=== PATIENT | female | born 1940 | race Hispanic/Latino ===

== ENCOUNTER 2019-02-14 10:34 | Observation (INO) | payer MEDICARE ==
[2019-02-11 15:33] LABS: BASOPHILS % 0.4 % (0.0-1.0); EOSINOPHILS # (AUTO) 0.2 (0.0-0.4); HEMATOCRIT 44.3 % (34.2-44.1); HEMOGLOBIN 15.1 g/dL (12.0-16.0); LYMPHOCYTES # (AUTO) 1.7 (1.0-3.2); LYMPHOCYTES % 23.4 % (18.0-39.1); MEAN CORPUSCULAR HEMOGLOBIN 32.1 pg (28-32); MEAN CORPUSCULAR HGB CONC 34.1 g/dL (31-35); MEAN CORPUSCULAR VOLUME 94.1 fL (81-99); MONOCYTES # (AUTO) 0.6 (0.2-0.8); MONOCYTES % 8.3 % (4.4-11.3); NEUTROPHILS # (AUTO) 4.8 (2.1-6.9); NEUTROPHILS % 64.6 % (38.7-80.0); PLATELET COUNT 290 x10e3/uL (140-360); RED BLOOD COUNT 4.71 x10e6/uL (3.6-5.1)
--- NOTE | 2019-02-11 16:03 | Diagnostic Imaging Report ---
EXAMINATION: CHEST 2 VIEWS INDICATION: Pre-operative COMPARISON: None FINDINGS: LINES/TUBES:None LUNGS:The lungs are well-inflated. No focal consolidation or pulmonary edema. PLEURA:No pleural effusion or pneumothorax. MEDIASTINUM:The cardiomediastinal silhouette appears normal in size and shape. Atherosclerotic calcifications of the thoracic aorta. BONES/SOFT TISSUES:No acute osseous injury. ABDOMEN:No free air under the diaphragm. Status post cholecystectomy. IMPRESSION: No focal pneumonia or pulmonary edema. Signed by: Amy Rankin MD on 02/11/2019 4:00 PM
[~2019-02-14] VITALS: Ht 157.5 cm; Wt 65.3 kg
[~2019-02-14 10:34] MED LIST: ASPIRIN81 MG PO; LISINOPRIL10 MG PO
--- OUTSIDE RECORDS SUMMARY | 2019-02-14 10:37 | XMS REPORT ---
Author Author [facility] Address Unknown Phone Unavailable Care Team Providers Care Central Office Maintainer Name Role Phone LULA KENNEDY Unavailable Unavailable Problems This patient has no known problems. Allergies, Adverse Reactions, Alerts This patient has no known allergies or adverse reactions. Medications This patient has no known medications. Results Test Description Test Time Test Comments Text Results Atomic Results Result Comments CHEST 2 VIEWS 2019-02-11 15:58:00 [place] [address] Patient Name: YVAN RICHARD MR #: [id number] : 1940 Age/Sex: 78/F Req #: [id number] [facility] Physician: Ordered by: LULA KENNEYD MD Report #: [id number] Location: OR Room/Bed: Procedure: [id number] DX/CHEST 2 VIEWS Exam Date: Exam Time: REPORT STATUS: Signed EXAMINATION: CHEST 2 VIEWS INDICATION: Pre-operative COMPARISON: None FINDINGS: LINES/TUBES:None LUNGS:The lungs are well- inflated. No focal consolidation or pulmonary edema. PLEURA:No pleural effusion or pneumothorax. MEDIASTINUM:The cardiomediastinal silhouette appears normal in size and shape. Atherosclerotic calcifications of the thoracic aorta. BONES/SOFT TISSUES:No acute osseous injury. ABDOMEN:No free air under the diaphragm. Status post cholecystectomy. IMPRESSION: No focal pneumonia or pulmonary edema. Signed by: Dipika Rankin MD on 02/11/2019 4:00 PM Dictated By: DIPIKA RANKIN MD 99 Transcribed By: QUINTIN on 02/11/191599 COPY TO: LULA KENNEDY MD
[2019-02-14] MEDS ORDERED: CLINDAMYCIN 600MG / 50ML 50 ML IV ONE (11:07)
[2019-02-14] MEDS ORDERED: CEFTRIAXONE SOD 1 GM/NS 50 ML 50 ML IV ONE (11:07)
[2019-02-14] MEDS ORDERED: GENTAMICIN 80MG/NS 100 ML 200 ML IV ONE (11:08)
[2019-02-14] MEDS ORDERED: BACITRACIN 50,000 UNIT VIAL ONE (12:13)
[2019-02-14] MEDS ORDERED: BUPIVACAINE 0.25%/EPI 30ML SDV INJ ONE (12:13)
[2019-02-14] MEDS ORDERED: IOPAMIDOL 300MG/ML 50ML INFUS..BTL IV ONE (12:13)
[2019-02-14] MEDS ORDERED: BACITRACIN ZINC 15 GM OINT ONE (14:59)
[2019-02-14] MEDS ORDERED: D5.45%NS/KCL 20MEQ 1,000 ML IV SCH (15:12)
[2019-02-14] MEDS ORDERED: NALOXONE HCL INJ 0.4 MG/ML AMP IV PRN (15:15)
[2019-02-14] MEDS ORDERED: MORPHINE SULFATE 1 MG/ML 30ML PCA IV PRN (15:15)
[2019-02-14] MEDS ORDERED: DIPHENHYDRAMINE HCL 25 MG CAP PO PRN (15:15)
[2019-02-14] MEDS ORDERED: ONDANSETRON HCL INJ 2MG/ML 2ML 2 MG/ML VIAL IV PRN (15:15)
[2019-02-14] MEDS ORDERED: FENTANYL CITRATE/PF 100MCG/2 ML INJ ONE (18:12)
[2019-02-14] MEDS ORDERED: DEXAMETHASONE SOD PHOS INJ 4 MG/ML VIAL ONE (18:25)
[2019-02-14] MEDS ORDERED: LIDOCAINE HCL 2% LOCAL INJ 5 ML SDV VIAL INJ ONE (18:25)
[2019-02-14] MEDS ORDERED: SEVOFLURANE INHAL SOLN 250 ML PEN BTL ONE (18:25)
[2019-02-14] MEDS ORDERED: EPHEDRINE SULFATE INJ 50 MG/10 ML SYR ONE (18:25)
[2019-02-14] MEDS ORDERED: PROPOFOL IV EMULSION 10 MG/ML 20 ML VIAL ONE (18:25)
[2019-02-14] MEDS ORDERED: ONDANSETRON HCL INJ 2MG/ML 2ML 2 MG/ML VIAL ONE (18:25)
[2019-02-14] MEDS ORDERED: GLYCOPYRROLATE INJ 1MG/ 5 ML SYR ONE (18:25)
[2019-02-14 20:29] VITALS: BP 93/46
[2019-02-14 20:30] VITALS: BP 93/46
--- NOTE | 2019-02-14 20:30 | NUR ---
RECEIVED PATIENT FROM PACU AT THIS TIME. PATIENT REPORTS PAIN IS WELL CONTROLLED AT 4/10. PATIENT IS A&OX3. TRANSFERRED TO BED FROM STRETCHER WITHOUT ASSISTANCE. ENCARNACION DRAINING TO GRAVITY. YARN MERCERIZER OPERATOR HELPER PUMP CHECKED WITH PACU NURSE. R FA 20G IV ASYMPTOMATIC, INTACT, AND PATENT. SOME OLD BLOOD NOTED TO HOSPITAL GOWN, NEW GOWN PROVIDED. VAGINAL PACKING IN PLACE. 2 TROCHAR SITES TO SUPRAPUBIC AREA. SMALL AMOUNT OF NEW BLOOD NOTED TO LOWER R BANDAID, WILL CONTINUE TO MONITOR, PACU NURSE REPORTS THAT HAPPENED DURING TRANSFER. LUNG SOUNDS CLEAR. BOWEL SOUNDS HYPOACTIVE. TOLD PATIENT TO REPORT WHEN SHE PASSES GAS, PATIENT VERBALIZED UNDERSTANDING. THIGH HIGH MARY HOSE AND SCDS PRESENT AND ACTIVE. BED LOCKED IN LOWEST POSITION, SIDE RAILS UPX2, CALL LIGHT IN REACH.
[2019-02-14] MEDS: DOCUSATE SODIUM 100 MG CAP PO SCH (22:24)
[2019-02-14] MEDS: CLINDAMYCIN 300MG 50 ML IV SCH (22:24)
[2019-02-14] MEDS: PIPERACILLIN/TAZO 2.25 GM 50 ML IV SCH (23:14)
[2019-02-15] VITALS (8 sets, daily range): BP systolic 91–120; BP diastolic 45–64
[2019-02-15 05:54] LABS: BASOPHILS % 0.2 % (0.0-1.0); EOSINOPHILS # (AUTO) 0.2 (0.0-0.4); EOSINOPHILS % 1.6 % (0.0-6.0); HEMATOCRIT 35.5 % (34.2-44.1); HEMOGLOBIN 11.8 g/dL (12.0-16.0); LYMPHOCYTES # (AUTO) 0.6 (1.0-3.2); LYMPHOCYTES % 4.8 % (18.0-39.1); MEAN CORPUSCULAR HEMOGLOBIN 31.9 pg (28-32); MEAN CORPUSCULAR HGB CONC 33.2 g/dL (31-35); MEAN CORPUSCULAR VOLUME 95.9 fL (81-99); MONOCYTES # (AUTO) 1.1 (0.2-0.8); MONOCYTES % 8.5 % (4.4-11.3); NEUTROPHILS # (AUTO) 10.5 (2.1-6.9); NEUTROPHILS % 84.7 % (38.7-80.0); PLATELET COUNT 246 x10e3/uL (140-360); RED CELL DISTRIBUTION WIDTH 13.3 % (11.7-14.4)
[2019-02-15] MEDS: CLINDAMYCIN 300MG 50 ML IV SCH (05:55)
[2019-02-15 06:07] LABS: ANION GAP 12.7 mmol/L (8-16); CALCIUM 8.6 mg/dL (8.4-10.2); CREATININE, SERUM 1.04 mg/dL (0.57-1.11); POTASSIUM 4.7 mmol/L (3.5-5.1)
[2019-02-15] MEDS: PIPERACILLIN/TAZO 2.25 GM 50 ML IV SCH (06:26)
--- NOTE | 2019-02-15 07:18 | NUR ---
pt awake alert resp even and unlabored at this time no distress noted, pt able to make needs known call light in reach. real estate recruiter pump in use at this time. no pain when asked.
[2019-02-15] MEDS ORDERED: ACETAMINOPHEN/CODEINE 300MG - 30MG TAB PO PRN (08:15)
--- NOTE | 2019-02-15 08:15 | NUR ---
LITHOGRAPHIC CAMERA OPERATOR pump dced at this time. pt pain level at 2.
[2019-02-15] MEDS: DOCUSATE SODIUM 100 MG CAP PO SCH ×2 (09:00→17:47)
--- NOTE | 2019-02-15 11:30 | NUR ---
Woke up pt for vagina packing removal, pt seemed as if her speech was slurred, but able to communicate. Pt raised both arms, was bale to stick out her tongue, and feet resistance were strong both hand loom fixer apprentice were strong, call to Dr. Smith at this time.
--- NOTE | 2019-02-15 11:40 | NUR ---
stat MRI ordered. 02 placed
--- NOTE | 2019-02-15 13:15 | NUR ---
pt off unit for MRI.
--- NOTE | 2019-02-15 13:19 | NUR ---
family member notified, Catrachita Cedillo daughter.
--- NOTE | 2019-02-15 14:15 | NUR ---
Visit made by the Spiritual Care Department Pastoral Visitor, Leslie Ashton. PV provided pastoral presence, prayer, hospitality, and supportive listening. Pastoral Visitor informed pt/family of the scope of Store Clerk Services and availability. ALLIE ANDRADE Highway Patrol Commander Spiritual Care Department O: [phone] Pager: [phone] ([phone] number calling from)
--- NOTE | 2019-02-15 14:53 | Diagnostic Imaging Report ---
EXAMINATION: MRI of the brain without contrast. HISTORY: Bilateral upper extremity weakness mostly on the right, possible TIA, COMPARISON: None available TECHNIQUE: Sagittal T2; axial DWI, T2, FLAIR, T1-IR, T2 gradient echo; coronal FLAIR. IMAGE QUALITY: Adequate. FINDINGS: Parenchyma: 1. A few scattered white matter T2 and FLAIR hyperintense foci, most likely age appropriate minimal chronic microvascular ischemic changes. Otherwise no areas of abnormal signal intensity in the brain parenchyma. 2. No mass, hemorrhage, acute or chronic infarcts. Skull: Unremarkable. Vessels: Expected flow voids present in the major arteries and dural sinuses. Extra-axial spaces: No abnormal signal intensity or mass effect. Brain volume: Within normal limits for age. Ventricles: No hydrocephalus or displacement. Foramen magnum: Unremarkable. Sella: Unremarkable. Paranasal / mastoid sinuses: No significant inflammatory disease. IMPRESSION: 1. No acute infarcts. 2. Minimal age-appropriate nonspecific chronic microvascular ischemic changes. Signed by: Dr. Marietta Ku M.D. on 02/15/2019 2:49 PM
--- NOTE | 2019-02-15 16:20 | NUR ---
pt returned to room, no c/o pain or no s/s of confusion.
--- NOTE | 2019-02-15 17:15 | NUR ---
spoke with Aldo Liu about pt symptoms.
--- NOTE | 2019-02-15 19:00 | NUR ---
RECEIVED PATIENT IN BEDSIDE SHIFT REPORT. PATIENT RESTING IN BED AT THIS TIME. PAIN IN ABDOMEN 08/18, WILL PROVIDE PAIN MEDICATION. 2 TROCHAR SITES TO LOWER ABD C/D/I, NO DRAINAGE NOTED, SURROUNDING SKIN NORMAL. NO S&S OF DISTRESS NOTED. BED LOCKED IN LOWEST POSITION, SIDE RAILS UPX2, CALL LIGHT IN REACH.
--- NOTE | 2019-02-15 20:10 | NUR ---
ASSISTED PATIENT TO RESTROOM AND BACK WITH WALKER. STEADY GAIT NOTED. TOLD PATIENT TO CALL IF SHE WANTS TO WALK THROUGHOUT THE EVENING, OTHERWISE TO MAKE SURE TO WALK TOMORROW BEFORE D/C. PATIENT VERBALIZED UNDERSTANDING.
--- NOTE | 2019-02-15 20:14 | NUR ---
report given to oncoming nurse, pt stable at this time
[2019-02-16] VITALS: BP 91/45
[2019-02-16 04:00] VITALS: BP 111/51
[2019-02-16 05:29] LABS: BASOPHILS # (AUTO) 0.1 (0.0-0.1); BASOPHILS % 0.5 % (0.0-1.0); EOSINOPHILS # (AUTO) 0.1 (0.0-0.4); EOSINOPHILS % 1.4 % (0.0-6.0); HEMATOCRIT 34.7 % (34.2-44.1); HEMOGLOBIN 11.5 g/dL (12.0-16.0); LYMPHOCYTES # (AUTO) 1.8 (1.0-3.2); LYMPHOCYTES % 18.2 % (18.0-39.1); MEAN CORPUSCULAR HEMOGLOBIN 31.6 pg (28-32); MEAN CORPUSCULAR HGB CONC 33.1 g/dL (31-35); MEAN CORPUSCULAR VOLUME 95.3 fL (81-99); MONOCYTES % 9.5 % (4.4-11.3); PLATELET COUNT 223 x10e3/uL (140-360); RED BLOOD COUNT 3.64 x10e6/uL (3.6-5.1); RED CELL DISTRIBUTION WIDTH 13.4 % (11.7-14.4)
[2019-02-16 05:48] LABS: CALCIUM 9.1 mg/dL (8.4-10.2); CREATININE, SERUM 1.18 mg/dL (0.57-1.11)
[2019-02-16 07:51] VITALS: BP 109/54
[2019-02-16] MEDS: DOCUSATE SODIUM 100 MG CAP PO SCH (08:30)
[2019-02-16 09:05] VITALS: BP 109/54
[2019-02-16] MEDS ORDERED: ONDANSETRON HCL 4 MG ORAL DISINTEGRATING TAB PO PRN (10:15)
--- NOTE | 2019-02-16 10:18 | NUR ---
MD BRAUN STATES NILS DOES NOT NEED TO SEE PT PRIOR TO DC. WILL VERIFY HH IS SET, AND INITIATE DC PAPERWORK
[2019-02-16] MEDS ORDERED: LEVAQUIN500 MG PO (10:33)
[2019-02-16] MEDS ORDERED: TYLENOL WITH C1 EACH PO (10:33)
--- NOTE | 2019-02-16 10:35 | NUR ---
SPOKE WITH KRISTINE LIRA. STATES PT IS SET FOR HH . PT CAN SAFELY BE DC
--- NOTE | 2019-02-16 11:22 | NUR ---
DISCHARGE INSTRUCTIONS AND PRESCRIPTIONS GIVEN PT VERBALIZED UNDERSTANDING TELE DC TEACHING COMPLETE ON HOW TO EMPTY ENCARNACION BAG PT IS READY FOR DC AT THIS TIME
--- NOTE | 2019-02-16 11:30 | NUR ---
PT OFF UNIT TO HOME AT THIS TIME
--- NOTE | 2019-02-16 14:19 | NUR ---
ORDERS FOR HOME HEALTH CARE CHOICE LETTER GIVEN PT [facility]OSE [facility] [phone] [phone] FAXED CLINICALS AND CONFIRMATION REC'D CONFIRMED PT'S ADDRESS AND PHONE NUMBER COPY OF CHOICE LETTER GIVEN TO PT
--- NOTE | 2019-02-16 18:19 | Discharge Summary ---
OBSTETRICS NURSE: Moody Nieto MD. FINAL DIAGNOSES: 1. Status post cystocele repair. 2. Episode of left upper extremity twitching postop and pain medication given. The patient is stable. Signs and symptoms completely resolved. An MRI of the brain without contrast negative. HOSPITAL COURSE: A 78-year-old female with status post cystocele repair. The patient does have a Maritn catheter in place. The patient was stable, about to go home and when she complained of some twitching of her left hand and some spasm. Workup otherwise negative. The patient is stable. An MRI of the brain is negative. Laboratory otherwise unremarkable. The patient may have reaction to anesthetic pain medication postop, but completely resolved now. She is ambulatory. Martin catheter remain in place. She will go home with a Martin catheter and home health. The patient is otherwise stable and discharged home today. The patient's blood pressure is low at this time, therefore I will hold off the lisinopril. She may continue with her baby aspirin. The patient to follow up with Dr. Moody Nieto as an outpatient. MD GRETTA Murphy/JULIAL /[id number]
--- NOTE | 2019-04-25 00:24 | Operative Report ---
DATE OF PROCEDURE: 02/14/2019 SURGEON: Moody Nieto MD PREOPERATIVE DIAGNOSES: 1. Very large cystocele. 2. Stress type urinary incontinence. 3. Existing and eroded mesh from prior reconstructive surgery by prior physicians. 4. Urinary tract infections. POSTOPERATIVE DIAGNOSES: 1. Very large cystocele. 2. Stress type urinary incontinence. 3. Existing and eroded mesh from prior reconstructive surgery by prior physicians. 4. Urinary tract infections. OPERATIONS PERFORMED: 1. Excision of eroded and exposed vaginal mesh (separate procedure performed for the diagnosis of the mesh). 2. Complicated repair of large cystocele (separate procedure performed for the diagnosis of cystocele). 3. Utilization of graft in cystocele repair. 4. Pubovaginal sling utilizing homograft. 5. Cystourethroscopy with bilateral ureteral catheterization and retrograde ureteropyelography (separate procedure performed for the urinary tract infections). 6. Interpretation of retrograde ureteropyelography. SKI LIFT OPERATOR: Hollis Nieto MD COMPLICATIONS: None. CLINICAL SUMMARY: Kassandra Umaña is a 78-year-old woman, who had a previous reconstruction with mesh. She has a large cystocele. She has incontinence. She is brought for the above procedure. She is aware of the risks of bleeding, infection, injury to adjacent structures, erosion, need for additional procedures, and she elected to proceed. OPERATIVE PROCEDURE IN DETAIL: Informed consent was verified. Kassandra Umaña was properly identified, taken to the operating room, placed on the operating table in supine position. Anesthesia was uneventfully begun. The patient was then carefully and gently repositioned in dorsal lithotomy position with all pressure points well padded. Her genitalia, abdomen, and perineum were shaved, prepared, and draped in usual sterile fashion. Labial stay sutures were utilized. We infiltrated the anterior vaginal wall mucosa with Marcaine with epinephrine. We then made a midline incision anteriorly. We created vaginal wall flap and identified the eroded mesh. We excised the eroded mesh, which of course left holes within the anterior vaginal wall flaps. We excised as much mesh as was an accessible. Copious irrigation was performed. The patient had a very large cystocele. We felt that we copiously irrigated and had clean wounds and we were having the patient on broad-spectrum intravenous antibiotics. Therefore, we felt it would be safe to place a biological mesh in repairing this severe pelvic organ prolapse. We pierced the endopelvic fascia bilaterally taking care to stay as laterally as possible to avoid injuring or affecting the periurethral neurovascular complexes. We then placed heavy Vicryl sutures in interrupted fashion and plicating the two cut edges of the endopelvic fascia. We did this from the bladder neck to the cephalad most extent of the vaginal dissection. This resulted in complete reduction of the patient's severe cystocele. Martin catheter was placed draining the bladder completely. We then took a piece of fascia jhonatan, hydrated in antibiotic irrigant, cut to shape, and placed a heavy PDS suture in a helical fashion through each end. We then utilized the LiquidHub needle system to hussein from our vaginal incision through the anterior abdominal wall, taking care to hug the posterior surface of the pubis. We then dragged along with the needles a suture pair of strands of the PDS on either side. Once this was done, the graft was secured to the anterior vaginal dissection utilizing 3-0 chromic suture. We then extended the graft to the distal most extent of the urethral dissection in order to create a pubovaginal sling. We then utilized the LiquidHub needle lateral suture passer to take one strand of each PDS sutures and tunnelled it subcutaneously suprapubically to join as contralateral counterpart. The sutures were then tied down to the level of the patient's skin and the knots were allowed to fall deep within the suprapubic fat pad thus ensuring a non-lifting, non-constricting pubovaginal sling. Copious irrigation was performed of all incisions. The vaginal wall mucosa was trimmed and we reconstructed the anterior vaginal wall including all the tissue defects created by excising the eroded mesh. We approximated the suprapubic stab wounds with interrupted Monocryl subcuticular suture. The Martin catheter was then withdrawn. Cystourethroscopy revealed a grade 1 to 2 trabeculations, but no tumors, no stones, no diverticula. No suspicious mucosal lesions were identified. An 8-Afghan catheter was used to cannulate each ureter and retrograde ureteropyelogram was performed. Interpretation of retrograde ureteropyelography: Contrast was instilled in retrograde fashion bilaterally. J-hooking was present bilaterally and mild hydroureteronephrosis, but there was unobstructed drainage observed bilaterally fluoroscopically. There were no filling defects. There were no stones. Martin catheter was replaced. The vaginal packing with antibiotic ointment was placed. Sterile dressings were applied to the suprapubic stab wounds. Labial stay sutures were removed and the patient was uneventfully reversed from anesthesia and taken to recovery room in stable condition. There were no complications to procedure. She tolerated the procedure well. We will admit the patient for postoperative care and intravenous antibiotics and plan to discharge her home within a couple of days. Moody Nieto MD [place]/MODL /[id number] cc: Yael Read MD
== END 2019-02-16 11:17 | disposition home health service (06) ==
LOC: OR 10:34 → PACU V 15:14 → INTOOBSV 15:14 → MED/SURG 20:39
PROVIDERS: ADMIT Urology; ATTEND Urology
DX: N81.10 Cystocele, unspecified (principal); N39.0 Urinary tract infection, site not specified; N39.3 Stress incontinence (female) (male); T83.711A Erosion of implanted vaginal mesh to surrounding organ or tissue, initial encounter; I10 Essential (primary) hypertension; Y83.8 Other surgical procedures as the cause of abnormal reaction of the patient, or of later complication, without mention of misadventure at the time of the procedure
CPT/HCPCS: 36415 ×3; 51700; 52005; 57240; 57288; 70551; 71046; 74420; 80048 ×2; 85025 ×3; 88304; 93005; C1758; C1762; G0378 ×3; J0696; J1100; J1580; J2001; J2270; J2405 ×2; J2543 ×2; J2704; J3010; J3490; Q9967; C1752